=== PATIENT | male | born 1990 ===

== ENCOUNTER 2022-04-14 05:34 | Emergency (ER) | payer BC ==
[2022-04-14] MEDS ORDERED: Activated Charcoal/Water Susp 50 GM/240 ML Tube PO ONE (05:44)
[2022-04-14] MEDS ORDERED: Sodium Chloride 0.9% 1,000 ML IV ONE (05:45)
== END 2022-04-14 07:30 | disposition home or self-care (01) ==
LOC: LL.ED 05:34
DX: T42.8X2A Poisoning by antiparkinsonism drugs and other central muscle-tone depressants, intentional self-harm, initial encounter (principal); Z88.2 Allergy status to sulfonamides
CPT/HCPCS: 93005; 93010; 96360; 99284; 99285-25; J7030

== ENCOUNTER 2023-01-21 11:38 | Emergency (ER) | payer SELFPAY ==
[2023-01-21 12:16] VITALS: PULSE 96
[2023-01-21] MEDS ORDERED: Ketorolac 30 MG/ML SDV IM ONE (12:21)
[2023-01-21 12:54] LABS: CHLORIDE,CL 102 mmol/L (98-107); ESTIMATED GFR 115 mL/min (>=60); SODIUM,NA 138 mmol/L (136-145)
[2023-01-21 14:43] VITALS: BP 131/88
[2023-01-24 15:46] LABS: C.TRACHOMATIS BY TMA Negative (Negative); N.GONORRHOEAE BY TMA Negative (Negative)
== END 2023-01-21 14:25 | disposition home or self-care (01) ==
LOC: LL.ED 11:38
DX: S93.412A Sprain of calcaneofibular ligament of left ankle, initial encounter (principal); Z72.0 Tobacco use; Z88.2 Allergy status to sulfonamides; Z79.899 Other long term (current) drug therapy
CPT/HCPCS: 36415; 73610-LT; 80053; 81001; 85025; 86140; 87491; 87591; 96372; 99283; J1885

== ENCOUNTER 2023-05-07 16:22 | Emergency (ER) | payer SELFPAY | END 2023-05-07 17:17 | disposition home or self-care (01) | LOC: LL.ED 16:22 | DX: S90.32XA Contusion of left foot, initial encounter (principal); S90.31XA Contusion of right foot, initial encounter; S99.912A Unspecified injury of left ankle, initial encounter; Z88.2 Allergy status to sulfonamides; W22.8XXA Striking against or struck by other objects, initial encounter | CPT/HCPCS: 73610-LT; 73620-LT; 99283 ==

== ENCOUNTER 2025-05-19 01:45 | Emergency (ER) | payer BC ==
[2025-05-19] MEDS: fentaNYL 50 MCG/ML SDV IVPUSH ONE ×4 (01:59→08:10)
[2025-05-19] MEDS: Ondansetron 4 MG/2 ML SDV IVPUSH ONE (02:01)
[2025-05-19] MEDS ORDERED: Naloxone 0.4 MG/ML SDV IVPUSH PRN (02:12)
[2025-05-19 02:19] LABS: BASOPHILS ABSOLUTE AUTO 0.03 K/uL (0.00-0.20); BASOPHILS PERCENT AUTO 0.2 % (0.0-2.0); EOSINOPHILS ABSOLUTE AUTO 0.17 K/uL (0.00-0.50); EOSINOPHILS PERCENT AUTO 1.1 % (0.0-5.0); IMMATURE GRAN ABSOLUTE AUTO 0.04 10^3/uL (0.00-0.04); IMMATURE GRAN PERCENT AUTO 0.3 % (0.0-0.4); LYMPHOCYTES ABSOLUTE AUTO 3.08 K/uL (0.50-3.50); LYMPHOCYTES PERCENT AUTO 19.8 % (10.0-50.0); MONOCYTES ABSOLUTE AUTO 0.89 K/uL (0.00-1.00); MONOCYTES PERCENT AUTO 5.7 % (2.0-14.0); NEUTROPHILS ABSOLUTE AUTO 11.33 K/uL (1.40-7.00); NEUTROPHILS PERCENT AUTO 72.9 % (45.0-80.0); PLATELET COUNT,PLT 371 K/uL (150-350); RED BLOOD CELL COUNT 5.12 M/uL (4.33-5.41); RED CELL DISTRIBUTION WIDTH 11.8 % (11.2-14.1); WHITE BLOOD CELL COUNT,WBC 15.5 K/uL (4.0-10.2)
[2025-05-19 02:39] LABS: INR 1.0 (0.9-1.1)
[2025-05-19 02:42] LABS: ALANINE AMINOTRANSFERASE,ALT 17.0 U/L (12-78); ASPARTATE AMNIOTRANSFERASE,AST 14.0 U/L (15-37); BILIRUBIN TOTAL 0.5 mg/dL (0.2-1.0); BLOOD UREA NITROGEN,BUN 23.0 mg/dL (7-18); CARBON DIOXIDE,CO2 27.3 mmol/L (21.0-32.0); CHLORIDE,CL 100.0 mmol/L (98-107); CREATININE 1.03 mg/dL (0.51-1.17); EST CRCL DRUG DOSING (CG) 96.26 mL/min; GLUCOSE RANDOM 135.0 mg/dL (70-99); POTASSIUM,K 3.5 mmol/L (3.5-5.1); PROTEIN TOTAL,TP 8.6 g/dL (6.4-8.2); SODIUM,NA 138.0 mmol/L (136-145)
[2025-05-19 02:43] LABS: ESTIMATED GFR 99.0 mL/min (>=60)
[2025-05-19] MEDS: Iopamidol 612 MG/ML 100 ML Bottle IVPUSH STA (02:52)
[2025-05-19 02:56] LABS: LACTIC ACID 1.2 mmol/L (0.4-2.0)
[2025-05-19] MEDS: Ketorolac 15 MG/ML SDV IVPUSH ONE (04:30)
[2025-05-19] MEDS: Sodium Chloride 0.9% 10 ML Syringe FLUSH PRN (08:11)
== END 2025-05-19 10:30 ==
LOC: LL.ED 01:45
DX: R10.11 Right upper quadrant pain (principal); F17.210 Nicotine dependence, cigarettes, uncomplicated; Z88.2 Allergy status to sulfonamides
CPT/HCPCS: 36415; 74177; 80053; 83605; 83690; 83735; 85025; 85610; 96365; 96375; 96376; 99284; 99285-25; J1885; J2405; J2543; J3010; Q9967